=== PATIENT | male | born 1965 | race Caucasian/White ===

== ENCOUNTER 2017-08-16 16:07 | Emergency (ER) | payer OTHER ==
[~2017-08-16] VITALS: Ht 170.2 cm; Wt 78.7 kg
[~2017-08-16 16:07] MED LIST: ASPIRIN81 M2 PO; HYDROCORTISONE 01 OZ TP; NEXIUM40 MG PO; NITROGLYCERIN0.4 MG SL; OSCIMIN SL0.125 MG SL; TOPROL XL25 MG PO
[2017-08-16 16:11] VITALS: BP 194/100
[2017-08-16 16:55] LABS: HEMOGLOBIN 16.5 gm/dL (14.0-18.0); RDW-CV 13.5 % (10.5-14.5); WBC 8.9 thou/uL (4.0-11.0)
[2017-08-16 17:03] LABS: MCH 36.7 pg (26.0-34.0); MCHC 36.6 g/dL (28.0-37.0); MCV 100.5 fL (80.0-100.0); MPV 8.2 fl. (7.2-11.1); RBC 4.48 mil/uL (4.50-6.00)
[2017-08-16 17:07] LABS: CALCIUM 9.3 mg/dL (8.5-10.1); POTASSIUM 3.3 mmol/L (3.5-5.1)
[2017-08-16 17:11] LABS: ALBUMIN 3.9 g/dL (3.4-5.0); TOTAL BILIRUBIN 0.5 mg/dL (<0.1-1.0); TOTAL PROTEIN 7.2 g/dL (6.4-8.2)
== END 2017-08-16 17:19 | disposition left against medical advice (07) ==
LOC: M.ERS 16:07
PROVIDERS: Physician Assistant
DX: R04.0 Epistaxis (principal); Z88.2 Allergy status to sulfonamides; Z53.21 Procedure and treatment not carried out due to patient leaving prior to being seen by health care provider

== ENCOUNTER 2017-08-16 17:29 | Emergency (ER) | payer OTHER ==
[~2017-08-16] VITALS: Ht 170.2 cm; Wt 78.5 kg
[2017-08-16 18:06] VITALS: BP 153/91
== END 2017-08-16 18:08 | disposition home or self-care (01) ==
LOC: M.ERS 17:29
DX: I16.0 Hypertensive urgency (principal); R04.0 Epistaxis; F10.99 Alcohol use, unspecified with unspecified alcohol-induced disorder; Z88.2 Allergy status to sulfonamides

== ENCOUNTER 2017-08-18 10:55 | Emergency (ER) | payer OTHER ==
[~2017-08-18] VITALS: Ht 170.2 cm; Wt 74.8 kg
[2017-08-18 11:49] LABS: ABSOLUTE EOSINOPHILS 0.1 thou/uL (0.0-0.7); ABSOLUTE LYMPHOCYTES 1.8 thou/uL (0.8-5.3); ABSOLUTE MONOCYTES 0.6 thou/uL (0.0-1.2); ABSOLUTE NEUTROPHILS 6.8 thou/uL (1.6-8.1); BASOPHILS 0.5 %; EOSINOPHILS 0.6 %; HEMATOCRIT 43.5 % (42.0-52.0); HEMOGLOBIN 15.2 gm/dL (14.0-18.0); LYMPHOCYTES 19.2 %; MCHC 34.9 g/dL (28.0-37.0); MCV 100.5 fL (80.0-100.0); MONOCYTES 6.3 %; MPV 8.2 fl. (7.2-11.1); NUCLEATED RBCS 0 /100WBC; PLATELET COUNT* 233 thou/uL (150-400); POLYS 73.4 %; RBC 4.33 mil/uL (4.50-6.00); RDW-CV 13.5 % (10.5-14.5); WBC 9.2 thou/uL (4.0-11.0)
[2017-08-18 11:52] LABS: CALCIUM 9.3 mg/dL (8.5-10.1); POTASSIUM 4.3 mmol/L (3.5-5.1)
[2017-08-18 11:57] LABS: TOTAL BILIRUBIN 0.5 mg/dL (<0.1-1.0); TOTAL PROTEIN 7.2 g/dL (6.4-8.2)
[2017-08-18 12:41] VITALS: BP 139/80
== END 2017-08-18 12:41 | disposition home or self-care (01) ==
LOC: M.ERS 10:55
PROVIDERS: Nurse Practitioner Family
DX: R04.0 Epistaxis (principal); L40.9 Psoriasis, unspecified; Z88.2 Allergy status to sulfonamides

== ENCOUNTER 2017-08-22 19:11 | Observation (INO) | payer OTHER ==
[~2017-08-22] VITALS: Ht 172.7 cm; Wt 75.7 kg
[2017-08-22] MEDS ORDERED: ASPIR 8181 MG PO (19:34)
[2017-08-22] MEDS ORDERED: XANAX 0.25 MG0.25 MG PO (19:35)
[2017-08-22] MEDS ORDERED: LOPRESSOR50 PO (19:35)
[2017-08-22 19:37] VITALS: BP 178/91
[2017-08-22 19:54] LABS: ABSOLUTE BASOPHILS 0.1 thou/uL (0.0-0.2); ABSOLUTE EOSINOPHILS 0.3 thou/uL (0.0-0.7); ABSOLUTE LYMPHOCYTES 3.8 thou/uL (0.8-5.3); ABSOLUTE NEUTROPHILS 4.9 thou/uL (1.6-8.1); BASOPHILS 1.3 %; EOSINOPHILS 2.8 %; HEMATOCRIT 39.7 % (42.0-52.0); HEMOGLOBIN 14.5 gm/dL (14.0-18.0); LYMPHOCYTES 37.3 %; MCH 39.2 pg (26.0-34.0); MCHC 36.6 g/dL (28.0-37.0); MCV 107.1 fL (80.0-100.0); MONOCYTES 9.9 %; MPV 8.6 fl. (7.2-11.1); NUCLEATED RBCS 0 /100WBC; PLATELET COUNT* 301 thou/uL (150-400); POLYS 48.7 %; RDW-CV 13.6 % (10.5-14.5); WBC 10.1 thou/uL (4.0-11.0)
[2017-08-22 20:02] LABS: ANION GAP 6 mmol/L (7-16); BUN 7 mg/dL (7-18); CALCIUM 8.8 mg/dL (8.5-10.1); CHLORIDE 105 mmol/L (98-107); CO2 30 mmol/L (21-32); CREATININE 1.1 mg/dL (0.6-1.3); GLUCOSE 139 mg/dL (70-99); POTASSIUM 3.6 mmol/L (3.5-5.1); SODIUM 141 mmol/L (136-145)
[2017-08-22 20:11] LABS: PROTIME 9.7 Seconds (9.20-11.50)
[2017-08-22 20:13] LABS: ALBUMIN 3.8 g/dL (3.4-5.0); ALKALINE PHOSPHATASE 56 U/L (46-116); LIPASE 274 U/L (73-393); NT-PRO BRAIN NAT PEPTIDE 30 pg/mL (<300); SGOT 18 U/L (15-37); SGPT 32 U/L (30-65); TOTAL BILIRUBIN 0.3 mg/dL (<0.1-1.0); TROPONIN-I LEVEL <0.06 ng/mL (<0.06)
[2017-08-22 20:29] LABS: URINE BILIRUBIN NEGATIVE (Negative); URINE BLOOD NEGATIVE (Negative); URINE CLARITY CLEAR; URINE COLOR YELLOW; URINE GLUCOSE-RANDOM NEGATIVE (Negative); URINE KETONES NEGATIVE (Negative); URINE LEUKOCYTES-REFLEX NEGATIVE (Negative); URINE NITRITE-REFLEX NEGATIVE (Negative); URINE PROTEIN NEGATIVE (Negative); URINE UROBILINOGEN 0.2 E.U./dl (0.2-1.0)
--- NOTE | 2017-08-22 20:56 | NUR ---
PT RETURNED FROM CT BY CART AT THIS TIME.
[2017-08-22 22:30] VITALS: BP 168/92
--- NOTE | 2017-08-22 22:45 | NUR ---
NEW PATIENT ADMITTED TO THE FLOOR, PLEASANT, AMBULATED SELF INTO BED, LEVER TENDER PLACED ON, SHOWN CALL LIGHT AND BED CONTROLS, WILL MONITOR
[2017-08-22 23:00] VITALS: BP 172/103
[2017-08-23 04:00] VITALS: BP 132/92
--- NOTE | 2017-08-23 05:42 | NUR ---
PT SLEPT AT INTERVALS SINCE ADMISSION, NO C/O PAIN OR DISCOMFORT, REMAINED IN SINUS RHYTHM ON THE TELE MONITOR ALL NIGHT, NO NOSE BLEEDS TONIGHT, UP AD JOHAN, PLEASANT, CALL LIGHT IN REACH, WILL CONTINUE TO MONITOR
--- NOTE | 2017-08-23 08:33 | NUR ---
PT RESTING IN BED, APPEARS ALERT O X 4, DENIES CHESTY PAIN, SOB, PAIN OR DISCOMFORT,
[2017-08-23 08:35] VITALS: BP 124/78
--- NOTE | 2017-08-23 10:56 | NUR ---
WAS ASKED BY DR KATZ TO CHECK ON 30 DAY CV MONITOR AVAILABILITY AFTER DC. DISCUSSED WITH WARD/CV NURSE. SHE STATED THAT SHE COULD ARRANGE FOR PT TO HAVE MONITOR EITHER TODAY OR FRIDAY DEPENDING ON IF HE IS IN THE CARDIOLOGY OFFICE SYSTEM. UPDATED DR KATZ
[2017-08-23 11:41] VITALS: BP 147/89
--- NOTE | 2017-08-23 12:39 | EKG ---
[place] [address] ELECTROCARDIOGRAM REPORT Name: FLAVIO HAMMONDS V Room: [address] M.R.#: [id number] Admission: 08/22/17 Attend Phys: Alonso Arredondo MD Discharge: Date of : 61 Report #: [id number] THIS REPORT FOR: //name// [facility] ED Test Date: 2017-08-22 Test Time: 20:17:24 Pat Name: FLAVIO HAMMONDS Department: Room: [facility] Gender: M Art Coordinator: SCARLET : 1965 Requested By: Leona Paz Order Number: [id number] MD: Nas Mcginnis Measurements Intervals [place] Rate: 84 P: 63 [place]: 161 QRS: 68 QRSD: 81 T: 64 QT: 378 QTc: 447 Interpretive Statements Sinus rhythm Baseline wander in lead(s) V5 Compared to ECG 01/03/2012 10:25:02 Right-axis deviation no longer present Electronically Signed On 08-23-2017 12:39:04 GUSSET FOLDER by Nas Mcginnis [email or web address] <ELECTRONICALLY SIGNED> By: Nas Mcginnis MD, [facility] 08/23/17 1239 16 16 Nas Mcginnis MD, [facility] /EPI
[2017-08-23 13:30] VITALS: BP 147/89
[2017-08-23 13:58] VITALS: BP 147/89
[2017-08-23] MEDS ORDERED: LOPRESSOR25 PO (21:05)
[2017-08-23] MEDS ORDERED: XANAX 1 MG TABLE1 MG PO (21:05)
== END 2017-08-23 14:07 | disposition home or self-care (01) ==
LOC: M.ERS 19:11 → M.TBA-ER 22:05 → M.2W 22:42
PROVIDERS: Emergency Medicine; ADMIT Internal Medicine
DX: I10 Essential (primary) hypertension (principal); R04.0 Epistaxis; L40.9 Psoriasis, unspecified; F17.210 Nicotine dependence, cigarettes, uncomplicated

== ENCOUNTER 2017-08-23 20:15 | Emergency (ER) | payer OTHER ==
[~2017-08-23] VITALS: Ht 172.7 cm; Wt 74.8 kg
[~2017-08-23 20:15] MED LIST changes: +ASPIR 8181 MG PO; +LOPRESSOR50 PO; +XANAX 0.25 MG0.25 MG PO
[2017-08-23] MEDS ORDERED: XANAX 1 MG TABLE1 MG PO (21:05)
[2017-08-23] MEDS ORDERED: LOPRESSOR25 PO (21:05)
[2017-08-23 21:09] LABS: ANION GAP 10 mmol/L (7-16); BUN 8 mg/dL (7-18); CHLORIDE 102 mmol/L (98-107); CO2 26 mmol/L (21-32); GLUCOSE 112 mg/dL (70-99); POTASSIUM 3.3 mmol/L (3.5-5.1); SODIUM 138 mmol/L (136-145)
[2017-08-23 21:33] LABS: TROPONIN-I LEVEL <0.06 ng/mL (<0.06)
[2017-08-23 22:02] VITALS: BP 175/94
--- NOTE | 2017-08-24 12:23 | EKG ---
[place] [address] ELECTROCARDIOGRAM REPORT Name: FLAVIO HAMMONDS [id number] Admission: 08/23/17 Attend Phys: Discharge: 08/23/17 Date of : 61 Report #: [id number] THIS REPORT FOR: //name// [facility] ED Test Date: 2017-08-23 Test Time: 20:21:12 Pat Name: FLAVIO HAMMONDS Department: Room: Gender: M Reinforcement Maker: HEMA : 1965 Requested By: Leona Paz Order Number: [id number] Reading MD: Nas Mcginnis Measurements Intervals [place] Rate: 96 P: 47 DC: 158 QRS: 66 QRSD: 84 T: 43 QT: 363 QTc: 459 Interpretive Statements Sinus rhythm Probable left atrial enlargement septal infarct, old Compared to ECG 08/22/2017 20:17:24 no change Electronically Signed On 08-24-2017 12:23:36 SUPPORT SPECIALIST by Nas Mcginnis [email or web address] <ELECTRONICALLY SIGNED> By: Nas Mcginnis MD, [facility] 08/24/17 1223 20 20 Nas Mcginnis MD, [facility] /EPI
== END 2017-08-23 22:03 | disposition home or self-care (01) ==
LOC: M.ERS 20:15
PROVIDERS: Emergency Medicine
DX: F41.9 Anxiety disorder, unspecified (principal); I10 Essential (primary) hypertension; Z88.2 Allergy status to sulfonamides

== ENCOUNTER 2017-09-06 10:00 | Emergency (ER) | payer OTHER ==
[~2017-09-06] VITALS: Ht 170.2 cm; Wt 72.6 kg
[~2017-09-06 10:00] MED LIST changes: +LOPRESSOR25 PO; +XANAX 1 MG TABLE1 MG PO
[2017-09-06 10:16] VITALS: BP 139/88
[2017-09-06] MEDS ORDERED: AUGMENTIN 500-1 EACH PO (10:34)
== END 2017-09-06 10:39 | disposition home or self-care (01) ==
LOC: M.ERS 10:00
DX: J01.80 Other acute sinusitis (principal); I10 Essential (primary) hypertension; L40.9 Psoriasis, unspecified; F17.200 Nicotine dependence, unspecified, uncomplicated; Z88.2 Allergy status to sulfonamides

== ENCOUNTER 2017-09-15 09:54 | Emergency (ER) | payer OTHER ==
[~2017-09-15] VITALS: Ht 172.7 cm; Wt 74.8 kg
[~2017-09-15 09:54] MED LIST changes: +AUGMENTIN 500-1 EACH PO
[2017-09-15 09:58] VITALS: BP 153/90
== END 2017-09-15 10:34 | disposition left against medical advice (07) ==
LOC: M.ERS 09:54
DX: G89.29 Other chronic pain (principal); R51 Headache; L40.9 Psoriasis, unspecified; I10 Essential (primary) hypertension; F17.200 Nicotine dependence, unspecified, uncomplicated; Z88.2 Allergy status to sulfonamides

== ENCOUNTER → 2017-09-16 | Outpatient (CLI) | payer OTHER ==
[~2017-09-16] MED LIST changes: +CLONIDINE0.1 PO
== END ==
LOC: M.MRI 06:53
DX: R51 Headache (principal)

== ENCOUNTER 2017-10-03 22:39 | Emergency (ER) | payer OTHER ==
[~2017-10-03] VITALS: Ht 170.2 cm; Wt 74.8 kg
[~2017-10-03 22:39] MED LIST changes: -CLONIDINE0.1 PO
[2017-10-03 23:14] LABS: HEMATOCRIT 45.1 % (42.0-52.0); HEMOGLOBIN 15.6 gm/dL (14.0-18.0); MCH 34.3 pg (26.0-34.0); MCHC 34.6 g/dL (28.0-37.0); MCV 99.3 fL (80.0-100.0); MPV 8.3 fl. (7.2-11.1); NUCLEATED RBCS 0 /100WBC; PLATELET COUNT* 281 thou/uL (150-400); RBC 4.54 mil/uL (4.50-6.00); RDW-CV 13.3 % (10.5-14.5); WBC 9.3 thou/uL (4.0-11.0)
[2017-10-03 23:33] LABS: CALCIUM 9.3 mg/dL (8.5-10.1); CREATININE 0.9 mg/dL (0.6-1.3); POTASSIUM 3.9 mmol/L (3.5-5.1)
[2017-10-03 23:38] LABS: TOTAL BILIRUBIN 0.5 mg/dL (<0.1-1.0); TOTAL PROTEIN 6.9 g/dL (6.4-8.2)
[2017-10-04 00:05] LABS: ABSOLUTE BASOPHILS 0.1 thou/uL (0.0-0.2); ABSOLUTE EOSINOPHILS 0.2 thou/uL (0.0-0.7); ABSOLUTE LYMPHOCYTES 2.9 thou/uL (0.8-5.3); ABSOLUTE MONOCYTES 0.9 thou/uL (0.0-1.2); ABSOLUTE NEUTROPHILS 5.2 thou/uL (1.6-8.1); PLATELET ESTIMATE ADEQUATE
[2017-10-04 00:06] LABS: ANISOCYTOSIS Occasional; CLUMPED PLTS OCCASIONAL; LARGE PLATELETS OCCASIONAL; TOXIC GRANULATION 1+
[2017-10-04] MEDS ORDERED: XANAX 1 MG TABLE1 MG PO (00:29)
[2017-10-04] MEDS ORDERED: LOPRESSOR25 PO (00:29)
[2017-10-04] MEDS ORDERED: CLONIDINE0.1 PO (00:29)
[2017-10-04 00:41] VITALS: BP 134/81
== END 2017-10-04 00:41 | disposition home or self-care (01) ==
LOC: M.ERS 22:39
PROVIDERS: Emergency Medicine
DX: I10 Essential (primary) hypertension (principal); Z88.2 Allergy status to sulfonamides